=== PATIENT | male | born 1990 | race Caucasian/White ===

== ENCOUNTER 2020-01-31 09:44 | Emergency (ER) | payer BC ==
[2020-01-31] MEDS ORDERED: Acetaminophen 325 MG Tab PO ONE (10:18)
--- NOTE | 2020-01-31 10:36 | EDM.PDOC ---
ED HPI GENERAL MEDICAL PROBLEM - General Chief Complaint: Back Pain or Injury Stated Complaint: BACK PAIN Time Seen by Provider: 01/31/20 10:07 Source of Information: Reports: Patient, RN Notes Reviewed - History of Present Illness INITIAL COMMENTS - FREE TEXT/NARRATIVE: 29 yr old male was doing some lifting yesterday, felt something "pop" mid back. Continues to have pain today, worse with motion. No radiation of pain. No difficulty breathing. Upper Back Pain Score (Numeric/FACES): 8 - Related Data Allergies Allergy/AdvReac Type Severity Reaction Status Date / Time No Known Allergies Allergy Verified 01/31/20 09:53 Home Meds: Home Meds Cholecalciferol (Vitamin D3) [Vitamin D] 1 dose PO ASDIRECTED 01/31/20 [History] Cyclobenzaprine [Flexeril] 5 mg PO Q8HR PRN #14 tab 01/31/20 [Rx] Naproxen [Naprosyn] 500 mg PO Q12HR #14 tab 01/31/20 [Rx] Omeprazole Magnesium [Prilosec Otc] 20 mg PO DAILY 01/31/20 [History] Vortioxetine Hydrobromide [Trintellix] 10 mg PO DAILY 01/31/20 [History] traMADol [Ultram] 50 mg PO Q6H PRN #14 tab 01/31/20 [Rx] Past Medical History - Past Surgical History Other GI Surgeries/Procedures: hiatal hernia x2 Social & Family History - Tobacco Use Smoking Status *Q: Current Every Day Smoker Years of Tobacco use: 10 Packs/Tins Daily: 0.5 - Caffeine Use Caffeine Use: Reports: Soda - Recreational Drug Use Recreational Drug Use: No ED ROS GENERAL - Review of Systems Review Of Systems: See Below Constitutional: Reports: No Symptoms HEENT: Reports: No Symptoms Respiratory: Denies: Shortness of Breath Cardiovascular: Denies: Chest Pain GI/Abdominal: Denies: Abdominal Pain, Nausea, Vomiting Musculoskeletal: Reports: Back Pain. Denies: Neck Pain, Leg Pain Skin: Reports: No Symptoms Neurological: Denies: Numbness, Tingling, Difficulty Walking, Weakness ED EXAM, GENERAL - Physical Exam Exam: See Below General Appearance: Alert, No Apparent Distress Eye Exam: Bilateral Eye: PERRL Throat/Mouth: Normal Inspection Head: Atraumatic Neck: Supple Respiratory/Chest: No Respiratory Distress, Lungs Clear, Normal Breath Sounds Cardiovascular: Regular Rate, Rhythm GI/Abdominal: Non-Tender Back Exam: Paraspinal Tenderness (L mid back, no visible swelling or bruising). No: Vertebral Tenderness Extremities: Normal Inspection, Normal Range of Motion Course - Vital Signs Last Recorded V/S: Last Vital Signs Temp 98.4 F 01/31/20 09:54 Pulse 67 01/31/20 09:54 Resp 13 01/31/20 09:54 BP 120/81 01/31/20 09:54 Pulse Ox 99 01/31/20 09:54 - Orders/Labs/Meds Meds: Medications Discontinued Medications Generic Name Dose Route Start Last Admin Trade Name Freq PRN Reason Stop Dose Admin Acetaminophen 975 mg 01/31/20 10:18 01/31/20 10:28 Tylenol PO 01/31/20 10:19 975 mg NOW ONE Administration Departure - Departure Time of Disposition: 10:28 Disposition: Home, Self-Care 01 Condition: Fair Clinical Impression: Upper back strain - Discharge Information Prescriptions: Cyclobenzaprine [Flexeril] 5 mg PO Q8HR PRN #14 tab PRN Reason: Spasms Naproxen [Naprosyn] 500 mg PO Q12HR #14 tab traMADol [Ultram] 50 mg PO Q6H PRN #14 tab PRN Reason: Pain Instructions: Muscle Strain Referrals: Kelly Rea FOAMING MACHINE OPERATOR [Primary Care Provider] - Forms: ED Department Discharge Additional Instructions: Rest, no heavy lifting until pain resolving, Naprosyn 500 mg twice daily for pain and inflamation. Flexeril if needed for muscle spasm. Tyelenol in addition up to 3 times daily as needed. You may take tramadol in addition for severe pain not relieved by Naprosyn and tyelnol. Prescriptions have been sent electronically to [facility] on [address]. Discomfort should get much better over the next 2 to 3 days. Follow up provider if not much better within 3 to 5 days as expected. Sepsis Event Note - Evaluation Sepsis Screening Result: No Definite Risk - Focused Exam Vital Signs: Vital Signs Temp Pulse Resp BP Pulse Ox 01/31/20 09:54 98.4 F 67 13 120/81 99 Date Exam was Performed: 01/31/20 Time Exam was Performed: 15:40
== END 2020-01-31 10:50 | disposition home or self-care (01) ==
LOC: JD.ED 09:44
DX: S29.012A Strain of muscle and tendon of back wall of thorax, initial encounter (principal); F17.210 Nicotine dependence, cigarettes, uncomplicated; Z79.899 Other long term (current) drug therapy; X50.0XXA Overexertion from strenuous movement or load, initial encounter
CPT/HCPCS: 99283; A9270

== ENCOUNTER 2021-05-06 08:35 | Emergency (ER) | payer BC ==
[2021-05-06] MEDS ORDERED: Lidocaine 1% with EPINEPHrine 1:100,000 10 ML MDV INJECT ONE (09:33)
--- NOTE | 2021-05-06 09:55 | PCM.PRNOTE ---
- Free Text/Narrative Note: Date: 05/06/2021 Procedure: hemorrhoidal thrombectomy Surgeon: Julio Padilla MD Indication: painful thrombosed external hemorrhoid for 24 hrs. Detailed Report: Consent was obtained. The patient was positioned in left lateral decubitus position and the right buttock retracted laterally. There was an almond-size t hrombosed external left lateral hemorrhoid. This was prepped with a chloraprep swab. 8 cc 1% lidocaine was injected deep to the surface of the hemorrhoidal prominence. A 1 cm stab incision was made with an 11 blade scalpel and about 5 cc of thrombus was expressed manually. The hemorrhoid seemed completely decompressed. There was minor bleeding and perianal areal was packed with dry gauze. The patient tolerated the procedure well.
--- NOTE | 2021-05-06 10:00 | EDM.PDOC ---
ED HPI GENERAL MEDICAL PROBLEM - General Chief Complaint: Gastrointestinal Problem Stated Complaint: HEMORROID Time Seen by Provider: 05/06/21 09:14 Source of Information: Reports: Patient History Limitations: Reports: No Limitations - History of Present Illness INITIAL COMMENTS - FREE TEXT/NARRATIVE: The patient presents with a hemorrhoid. He drove up here yesterday and he st arted to notice some pain. That pain got worse and he could not sleep and had to sit in a hot bath. That would help some. He has no history of hemorrhoids. He has no fever or chills. Onset: Gradual Duration: Day(s): Location: Reports: Other (rectum) Quality: Reports: Sharp Severity: Severe Improves with: Reports: None Worsens with: Reports: None Associated Symptoms: Reports: No Other Symptoms rectal Pain Score (Numeric/FACES): 4 - Related Data Allergies Allergy/AdvReac Type Severity Reaction Status Date / Time No Known Allergies Allergy Verified 05/06/21 09:07 Home Meds: Home Meds Cholecalciferol (Vitamin D3) [Vitamin D] 1 dose PO ASDIRECTED 01/31/20 [History] Cyclobenzaprine [Flexeril] 5 mg PO Q8HR PRN #14 tab 01/31/20 [Rx] Naproxen [Naprosyn] 500 mg PO Q12HR #14 tab 01/31/20 [Rx] Omeprazole Magnesium [Prilosec Otc] 20 mg PO DAILY 01/31/20 [History] Vortioxetine Hydrobromide [Trintellix] 10 mg PO DAILY 01/31/20 [History] traMADol [Ultram] 50 mg PO Q6H PRN #14 tab 01/31/20 [Rx] Past Medical History Gastrointestinal History: Reports: GERD - Past Surgical History GI Surgical History: Reports: Hernia, Abdominal Other GI Surgeries/Procedures: hiatal hernia x2 Social & Family History - Tobacco Use Tobacco Use Status *Q: Never Tobacco User - Caffeine Use Caffeine Use: Reports: Soda - Recreational Drug Use Recreational Drug Use: No ED ROS GENERAL - Review of Systems Review Of Systems: See Below Constitutional: Reports: No Symptoms HEENT: Reports: No Symptoms Respiratory: Reports: No Symptoms Cardiovascular: Reports: No Symptoms Endocrine: Reports: No Symptoms GI/Abdominal: Reports: No Symptoms : Reports: No Symptoms ED EXAM, GI/ABD - Physical Exam Exam: See Below Exam Limited By: No Limitations General Appearance: Alert, No Apparent Distress Ears: Normal External Exam Nose: Normal Inspection Head: Atraumatic, Normocephalic Neck: Normal Inspection Respiratory/Chest: No Respiratory Distress Rectal (Males) Exam: Other (Thrombosed hemorrhoid in the left side of the rectum) Course - Vital Signs Last Recorded V/S: Last Vital Signs Temp 97.3 F 05/06/21 09:03 Pulse 75 05/06/21 09:03 Resp 18 05/06/21 09:03 BP 120/93 H 05/06/21 09:03 Pulse Ox 98 05/06/21 09:03 - Orders/Labs/Meds Meds: Medications Discontinued Medications Generic Name Dose Route Start Last Admin Trade Name Collin PRN Reason Stop Dose Admin Lidocaine/Epinephrine 10 ml 05/06/21 09:33 Lidocaine 1% With Epinephrine 1:100,000 10 Ml Mdv INJECT 05/06/21 09:34 ONETIME ONE - Re-Assessments/Exams Free Text/Narrative Re-Assessment/Exam: 05/06/21 09:[address] Padilla and he came over and was able to open up the hemorrhoid and get the clot out. Departure - Departure Time of Disposition: 10:00 Disposition: Home, Self-Care 01 Condition: Good Clinical Impression: Thrombosed external hemorrhoid - Discharge Information *PRESCRIPTION DRUG MONITORING PROGRAM REVIEWED*: Not Applicable *COPY OF PRESCRIPTION DRUG MONITORING REPORT IN PATIENT GUILLAUME: Not Applicable Referrals: Kelly Rea NP [Primary Care Provider] - Julio Padilla MD [Physician] - Additional Instructions: Drink plenty of water. Try to keep your stool softer by taking fiber like metamucil. If you have any pain, take a sits bath where you put some warm water in a tub with soap and clean the area. If you have any more concerns follow up with Dr Padilla in his office or come back to the ER. Sepsis Event Note (ED) - Evaluation Sepsis Screening Result: No Definite Risk - Focused Exam Vital Signs: Vital Signs Temp Pulse Resp BP Pulse Ox 05/06/21 09:03 97.3 F 75 18 120/93 H 98
== END 2021-05-06 10:22 | disposition home or self-care (01) ==
LOC: JD.ED 08:35
DX: K64.5 Perianal venous thrombosis (principal); K21.9 Gastro-esophageal reflux disease without esophagitis; Z79.899 Other long term (current) drug therapy
CPT/HCPCS: 46083; 99282-25

== ENCOUNTER 2021-05-06 12:16 | Emergency (ER) | payer BC ==
[2021-05-06] MEDS ORDERED: Acetaminophen/HYDROcodone 325-5 MG Tab PO ONE (13:28)
--- NOTE | 2021-05-06 14:13 | EDM.PDOC ---
ED HPI GENERAL MEDICAL PROBLEM - General Chief Complaint: General Stated Complaint: BLEEDING Time Seen by Provider: 05/06/21 12:28 Source of Information: Reports: Patient History Limitations: Reports: No Limitations - History of Present Illness INITIAL COMMENTS - FREE TEXT/NARRATIVE: The patient presents with rectal bleeding. He was just here this morning for a thrombosed hemorrhoid. Dr Padilla came and lanced it. He went home and he had lots of bleeding and he also has more pain. Onset: Gradual Duration: Hour(s): Location: Reports: Other (rectum) Quality: Reports: Sharp Severity: Severe Improves with: Reports: None Worsens with: Reports: None Associated Symptoms: Reports: No Other Symptoms Buttock Pain Score (Numeric/FACES): 7 - Related Data Allergies Allergy/AdvReac Type Severity Reaction Status Date / Time No Known Allergies Allergy Verified 05/06/21 12:24 Home Meds: Home Meds Omeprazole Magnesium [Prilosec Otc] 20 mg PO BEDTIME 01/31/20 [History] Past Medical History Gastrointestinal History: Reports: GERD Endocrine/Metabolic History: Reports: Obesity/BMI 30+ - Past Surgical History GI Surgical History: Reports: Hernia, Abdominal Other GI Surgeries/Procedures: hiatal hernia x2 Social & Family History - Tobacco Use Tobacco Use Status *Q: Never Tobacco User - Caffeine Use Caffeine Use: Reports: Energy Drinks - Recreational Drug Use Recreational Drug Use: Yes Recreational Drug Type: Reports: Marijuana/Hashish ED ROS GENERAL - Review of Systems Review Of Systems: See Below Constitutional: Reports: No Symptoms HEENT: Reports: No Symptoms Respiratory: Reports: No Symptoms Cardiovascular: Reports: No Symptoms Endocrine: Reports: No Symptoms GI/Abdominal: Reports: Other (rectal bleeding) : Reports: No Symptoms Musculoskeletal: Reports: No Symptoms Skin: Reports: No Symptoms ED EXAM, GENERAL - Physical Exam Exam: See Below Exam Limited By: No Limitations General Appearance: Alert, No Apparent Distress Ears: Normal External Exam Nose: Normal Inspection Head: Atraumatic, Normocephalic Neck: Normal Inspection Respiratory/Chest: No Respiratory Distress Rectal (Males) Exam: Other (Bleeding hemorrhoid) Course - Vital Signs Last Recorded V/S: Last Vital Signs Temp 97 F 05/06/21 12:21 Pulse 96 05/06/21 12:21 Resp 18 05/06/21 12:21 BP 131/79 05/06/21 12:21 Pulse Ox 96 05/06/21 12:21 - Orders/Labs/Meds Meds: Medications Discontinued Medications Generic Name Dose Route Start Last Admin Trade Name Collin PRN Reason Stop Dose Admin Hydrocodone Bitart/Acetaminophen 2 tab 05/06/21 13:28 05/06/21 13:45 Acetaminophen/Hydrocodone 325-5 Mg Tab PO 05/06/21 13:29 2 tab ONETIME ONE Administration - Re-Assessments/Exams Free Text/Narrative Re-Assessment/Exam: 05/06/21 14:11 I cleaned the area and I put a quick clot on and the bleeding stopped. I gave him some hydrocodone for the pain. I will discharge him home. Departure - Departure Time of Disposition: 14:15 Disposition: Home, Self-Care 01 Condition: Good Clinical Impression: Bleeding hemorrhoid - Discharge Information *PRESCRIPTION DRUG MONITORING PROGRAM REVIEWED*: Not Applicable *COPY OF PRESCRIPTION DRUG MONITORING REPORT IN PATIENT GUILLAUME: Not Applicable Referrals: Kelly Rea EGG TESTER [Primary Care Provider] - Julio Padilla MD [Physician] - 1 Week Additional Instructions: Keep the quick clot sponge on as long as you can until tomorrow. If it bleeds again use the new one. Please return if you are worse. Follow up with Dr Padilla. Sepsis Event Note (ED) - Evaluation Sepsis Screening Result: No Definite Risk - Focused Exam Vital Signs: Vital Signs Temp Pulse Resp BP Pulse Ox 05/06/21 12:21 97 F 96 18 131/79 96
== END 2021-05-06 14:25 | disposition home or self-care (01) ==
LOC: JD.ED 12:16
DX: K64.9 Unspecified hemorrhoids (principal); K21.9 Gastro-esophageal reflux disease without esophagitis; E66.9 Obesity, unspecified; Z68.35 Body mass index [BMI] 35.0-35.9, adult; Z79.899 Other long term (current) drug therapy
CPT/HCPCS: 99283; A9270

== ENCOUNTER 2021-09-12 08:47 | Emergency (ER) | payer BC ==
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
--- NOTE | 2021-09-12 10:36 | CR ---
Left shoulder: 3 views of the left shoulder were obtained. Comparison: No prior shoulder study is available. Glenohumeral joint and acromioclavicular joint appears within normal limits. Visualized ribs show nothing acute. No acute fracture, dislocation or other bony abnormality is appreciated. Impression: 1. No abnormality is appreciated on 3-view left shoulder study. Diagnostic code #1
== END 2021-09-12 09:45 | disposition home or self-care (01) ==
LOC: JD.ED 08:47
DX: S49.92XA Unspecified injury of left shoulder and upper arm, initial encounter (principal); R60.0 Localized edema; K21.9 Gastro-esophageal reflux disease without esophagitis; E66.9 Obesity, unspecified; Z68.30 Body mass index [BMI] 30.0-30.9, adult; Z79.899 Other long term (current) drug therapy; Y04.0XXA Assault by unarmed brawl or fight, initial encounter
CPT/HCPCS: 73030-26-LT; 73030-LT; 99283-25